=== PATIENT | female | born 1940 | race Caucasian/White ===

== ENCOUNTER → 2019-02-27 | Outpatient (CLI) | payer MEDICARE ==
[~2019-02-27] MED LIST: ALEN70TA5 PO; ASPI-586 PO; BIOT1TAB PO; CALC-6 PO; LISI-552 PO; MAGN400T6 PO; NABU500T PO; OMEP20CA12 PO; PRAV40TA2 PO; TRAM-42 PO
[2019-02-27 09:55] LABS: BASOPHILS % (AUTO) 0 % (0-10); EOSINOPHILS # (AUTO) 0.1 10^3/uL (0.0-0.3); EOSINOPHILS % (AUTO) 2 % (0-10); HEMATOCRIT 38 % (35-52); HEMOGLOBIN 11.6 G/DL (11.5-16.0); LYMPHOCYTES # (AUTO) 1.1 X 10^3 (1.0-4.0); LYMPHOCYTES % (AUTO) 21 % (12-44); MEAN CORPUSCULAR HEMOGLOBIN 29 PG (25-34); MEAN CORPUSCULAR HGB CONC 31 G/DL (32-36); MEAN CORPUSCULAR VOLUME 96 FL (80-99); MEAN PLATELET VOLUME 8.7 FL (7.4-10.4); MONOCYTES # (AUTO) 0.3 X 10^3 (0.0-1.0); MONOCYTES % (AUTO) 6 % (0-12); NEUTROPHILS # (AUTO) 3.8 X 10^3 (1.8-7.8); NEUTROPHILS % (AUTO) 71 % (42-75); PLATELET COUNT 250 10^3/uL (130-400); WHITE BLOOD COUNT 5.3 10^3/uL (4.3-11.0)
[2019-02-27 10:17] LABS: BILIRUBIN,TOTAL 0.4 MG/DL (0.1-1.0); CALCIUM 9.6 MG/DL (8.5-10.1); CREATININE SERUM 1.3 MG/DL (0.60-1.30); POTASSIUM 4.2 MMOL/L (3.6-5.0); TOTAL PROTEIN 7.5 GM/DL (6.4-8.2)
[2019-02-27 10:57] LABS: BAND NEUTROPHILS 0 %; BASOPHILS % (MANUAL) 0 %; EOSINOPHILS % (MANUAL) 2 %; LYMPHOCYTES % (MANUAL) 25 %; MONOCYTES % (MANUAL) 6 %; NEUTROPHILS % (MANUAL) 67 %; RBC MORPH NORMAL
== END ==
LOC: LAB 09:33
PROVIDERS: ATTEND Internal Medicine
DX: R50.9 Fever, unspecified (principal); M79.10 Myalgia, unspecified site
CPT/HCPCS: 36415; 80053; 85007; 85027

== ENCOUNTER 2021-04-01 14:10 | Emergency (ER) | payer MEDICARE ==
[~2021-04-01] VITALS: Ht 167 cm; Wt 70.0 kg
[~2021-04-01 14:10] MED LIST changes: -ALEN70TA5 PO; +ALEN70TA80 PO; -CALC-6 PO; +CALC1TAB84 PO; -LISI-552 PO; +LISI20TA26 PO; -MAGN400T6 PO; +MAGN400T8 PO; -NABU500T PO; +NABU500T8 PO; -OMEP20CA12 PO; +OMEP20CA18 PO
[2021-04-01] MEDS ORDERED: fentaNYL INJ 100 MCG/2 ML AMP IVP ONE (15:00)
--- NOTE | 2021-04-01 15:10 | ED Trauma-Multisystem ---
General Chief Complaint: Trauma-Non Activation Stated Complaint: STERNUM PAIN FELL Nursing Triage Note: ARRIVED VIA AMB TO ROOM 05 ET HOLDING CHEST. STATES SHE FELL EARLIER TODAY CAUSING SEVERE PAIN IN HER STERNUM AREA. PT STATES SHE DID NOT HIT HER HEAD. Source of Information: Patient Exam Limitations: No Limitations History of Present Illness Date Seen by Provider: Apr 01, 2021 Time Seen by Provider: 15:07 Initial Comments To ER with reports of sternal pain. She arrives holding her chest with shallow breathing. She fell earlier today landing on her chest. Did not hit her face or head. No extremity pain. She landed directly on her chest. She was standing at the bar getting ready to go eat lunch with her when she fell. Occurred: Just Prior to Arrival Severity: Moderate Pain/Injury Location: Chest Method of Injury: Fall Loss of Consciousness: No Loss of Consciousness Associated Symptoms (Fall): No Abdominal Pain; Chest Pain Allergies and Home Medications Allergies Coded Allergies: quinine (Verified Allergy, Unknown, 11/25/15) Home Medications Alendronate Sodium 70 Mg Tablet, 70 MG PO DAILY, (Reported) Biotin 1 Mg Tablet, 1 MG PO DAILY, (Reported) Lisinopril 20 Mg Tablet, 20 MG PO DAILY, (Reported) Magnesium Oxide 400 Mg Tablet, 400 MG PO DAILY, (Reported) Nabumetone 500 Mg Tablet, 500 MG PO BID, (Reported) Omeprazole 20 Mg Capsule.dr, 20 MG PO DAILY, (Reported) Pravastatin Sodium 40 Mg Tablet, 40 MG PO DAILY, (Reported) Tramadol HCl 50 Mg Tablet, 50 MG PO Q4H Prescribed by: ERICA ARRIOLA on 11/25/15 1514 Tramadol HCl 50 Mg Tablet, 50 MG PO Q6H PRN for PAIN-MODERATE (5-7) Prescribed by: LENKA BAUMAN on 04/01/21 1658 Patient Home Medication List Home Medication List Reviewed: Yes Review of Systems Review of Systems Constitutional: see HPI Eyes: No Symptoms Reported Ears: No Symptoms Reported Nose: No Symptoms Reported Mouth: No Symptoms Reported Throat: No Symptoms to Report Respiratory: no symptoms reported Cardiovascular: See HPI, Chest Pain Genitourinary: no symptoms reported Past Oedjbbm-Xghvwn-Xqeagd Hx Seasonal Allergies Seasonal Allergies: Yes Past Medical History Appendectomy, Gallbladder, Orthopedic Hypertension Physical Exam Vital Signs Vital Signs - First Documented 04/01/21 14:45 Temp 36.4 Pulse 87 Resp 16 B/P (MAP) 141/92 (108) Pulse Ox 85 O2 Delivery Nasal Cannula O2 Flow Rate 2.00 Height, Weight, BMI Height: 5'6" Weight: 170lbs. oz. 77.203187xm; 25.00 BMI Method: General Appearance: No Apparent Distress, WD/WN, Thin, Other (Splinting the left anterior medial chest. She states that she has to breathe shallow because breathing deeply hurts too much. No pain in the abdomen. Oxygen saturation was 86% on room air due to her shallow breathing most likely as she does not have any pre-existing lung disease nor does she wear oxygen at home.) Neck: Full Range of Motion, Normal Inspection Respiratory: No Accessory Muscle Use, No Respiratory Distress Gastrointestinal: Normal Bowel Sounds, Non Tender, Soft Neurologic/Psychiatric: Alert, Oriented x3 Skin: Normal Color, Warm/Dry [place] Coma Score Best Eye Response ([place]): (4) Open Spontaneously Best Verbal Response ([place]): (5) Oriented Best Motor Response ([place]): (6) Obeys Commands [place] Total: 15 Progress/Results/Core Measures Results/Orders Lab Results Laboratory Tests Test 04/01/21 15:11 Range/Units White Blood Count 10.3 4.3-11.0 10^3/uL Red Blood Count 3.91 3.80-5.11 10^6/uL Hemoglobin 11.1 L 11.5-16.0 g/dL Hematocrit 37 35-52 % Mean Corpuscular Volume 94 80-99 fL Mean Corpuscular Hemoglobin 28 25-34 pg Mean Corpuscular Hemoglobin Concent 30 L 32-36 g/dL Red Cell Distribution Width 13.4 10.0-14.5 % Platelet Count 245 130-400 10^3/uL Mean Platelet Volume 9.1 9.0-12.2 fL Immature Granulocyte % (Auto) 1 % Neutrophils (%) (Auto) 87 H 42-75 % Lymphocytes (%) (Auto) 8 L 12-44 % Monocytes (%) (Auto) 4 0-12 % Eosinophils (%) (Auto) 0 0-10 % Basophils (%) (Auto) 0 0-10 % Neutrophils # (Auto) 8.9 H 1.8-7.8 10^3/uL Lymphocytes # (Auto) 0.8 L 1.0-4.0 10^3/uL Monocytes # (Auto) 0.4 0.0-1.0 10^3/uL Eosinophils # (Auto) 0.0 0.0-0.3 10^3/uL Basophils # (Auto) 0.0 0.0-0.1 10^3/uL Immature Granulocyte # (Auto) 0.1 0.0-0.1 10^3/uL Neutrophils % (Manual) 87 % Lymphocytes % (Manual) 8 % Monocytes % (Manual) 3 % Metamyelocytes % 1 % Myelocytes % 1 % Hypochromasia SLIGHT Sodium Level 139 135-145 MMOL/L Potassium Level 4.1 3.6-5.0 MMOL/L Chloride Level 102 98-107 MMOL/L Carbon Dioxide Level 25 21-32 MMOL/L Anion Gap 12 5-14 MMOL/L Blood Urea Nitrogen 19 H 7-18 MG/DL Creatinine 1.33 H 0.60-1.30 MG/DL Estimat Glomerular Filtration Rate 38 BUN/Creatinine Ratio 14 Glucose Level 120 H 70-105 MG/DL Calcium Level 10.1 8.5-10.1 MG/DL Corrected Calcium 10.1 8.5-10.1 MG/DL Total Bilirubin 0.5 0.1-1.0 MG/DL Aspartate Amino Transf (AST/SGOT) 22 5-34 U/L Alanine Aminotransferase (ALT/SGPT) 14 0-55 U/L Alkaline Phosphatase 42 40-136 U/L Troponin I < 0.028 <0.028 NG/ML Total Protein 7.7 6.4-8.2 GM/DL Albumin 4.0 3.2-4.5 GM/DL My Orders Orders - LENKA BAUMAN HISTOTECHNICIAN Cbc With Automated Diff (04/01/21 15:00) Ekg Tracing (04/01/21 15:00) Troponin I (04/01/21 15:00) Comprehensive Metabolic Panel (04/01/21 15:00) Chest 1 View, Ap/Pa Only (04/01/21 15:00) Ed Iv/Invasive Line Start (04/01/21 15:00) Fentanyl Inj (Sublimaze Injection) (04/01/21 15:00) Manual Differential (04/01/21 15:11) Ct Chest/Abdomen Wo (04/01/21 15:48) Incentive Spirometry Initial (04/01/21 16:52) Incentive Spirometry (Nursing) Q2H (04/01/21 16:52) Tramadol Tablet (Ultram Tablet) (04/01/21 17:00) Medications Given in ED Current Medications Medications Dose Ordered Sig/Fortunato Route Start Time Stop Time Status Last Admin Dose Admin Fentanyl Citrate 50 mcg ONCE ONCE IVP 04/01/21 15:00 04/01/21 15:02 DC 04/01/21 15:16 50 MCG Tramadol HCl 50 mg ONCE ONCE PO 04/01/21 17:00 04/01/21 17:01 DC 04/01/21 17:01 50 MG Vital Signs/I&O 04/01/21 04/01/21 04/01/21 14:45 14:45 17:13 Temp 36.4 Pulse 87 71 Resp 16 16 B/P (MAP) 141/92 (108) 147/77 Pulse Ox 85 85 96 O2 Delivery Nasal Cannula Room Air Room Air O2 Flow Rate 2.00 Blood Pressure Mean: 108 Diagnostic Imaging Diagonstic Imaging: Xray, CT Comments NAME: GUADALUPE ALICEA MED REC#: [id number] PT STATUS: REG ER : 1940 PHYSICIAN: LENKA BAUMAN HISTOTECHNICIAN ADMIT DATE: 04/01/21/ER Draft Date of Exam:04/01/21 CHEST 1 VIEW, AP/PA ONLY EXAMINATION: Chest 1 view. HISTORY: Chest pain. COMPARISON: None available. FINDINGS: Right hemidiaphragm is elevated. No pleural effusion or pneumothorax. No edema or pneumonia. Heart size is normal. There is left shoulder hemiarthroplasty. 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 IMPRESSION: Elevated right hemidiaphragm with clear lungs. Dictated on workstation # [id number] Dict: 04/01/21 1541 Trans: 04/01/21 1543 [facility] [id number] Interpreted by: ELIAS EDWARD MD Electronically signed by: Departure Communication (Admissions) [id number]-after her pain was controlled adequately such that she could take a deep breath her oxygen saturation yunier to 93% where it stayed even with the supplemental oxygen turned off. She will be given an Ultram here and instructed on incentive spirometer usage. She denies any radicular symptoms down the legs or any back pain. I discussed with her the L3 fracture and she is nontender to this location. Perhaps this is not acute as it would appear on CT. Either way she will be given a prescription for tramadol and to follow-up with Dr. Alfaro. I did offer admission but she states she has a disabled at home she would like to go home and be able to take care of. Impression Primary Impression: Status post fall Additional Impression: Sternal fracture Disposition: HOME, SELF-CARE Condition: Improved Departure-Patient Inst. Decision time for Depature: 15:40 Referrals: SUAD ALFARO MD (PCP/Family) Primary Care Physician Patient Instructions: Sternal Fracture Add. Discharge Instructions: 1. Use the incentive spirometer device to ensure that you are taking adequately deep breaths. Take the Ultram pain medication in addition to the Tylenol for pain control. Return to ER for weakness or shortness of breath or intolerable pain. Call Dr. Alfaro for follow-up as soon as he can see you. All discharge instructions reviewed with patient and/or family. Voiced understanding. Scripts Tramadol HCl (Ultram) 50 Mg Tablet 50 MG PO Q6H PRN for PAIN-MODERATE (5-7), #20 TAB Prov: LENKA BAUMAN APRN 04/01/21 Copy Copies To 1: SUAD ALFARO MD, PETER J APRN Apr 01, 2021 15:10
[2021-04-01 15:16] LABS: BASOPHILS % (AUTO) 0 % (0-10); EOSINOPHILS % (AUTO) 0 % (0-10); HEMATOCRIT 37 % (35-52); HEMOGLOBIN 11.1 g/dL (11.5-16.0); LYMPHOCYTES # (AUTO) 0.8 10^3/uL (1.0-4.0); LYMPHOCYTES % (AUTO) 8 % (12-44); MEAN CORPUSCULAR HEMOGLOBIN 28 pg (25-34); MEAN CORPUSCULAR HGB CONC 30 g/dL (32-36); MEAN CORPUSCULAR VOLUME 94 fL (80-99); MEAN PLATELET VOLUME 9.1 fL (9.0-12.2); MONOCYTES # (AUTO) 0.4 10^3/uL (0.0-1.0); MONOCYTES % (AUTO) 4 % (0-12); NEUTROPHILS # (AUTO) 8.9 10^3/uL (1.8-7.8); NEUTROPHILS % (AUTO) 87 % (42-75); PLATELET COUNT 245 10^3/uL (130-400); WHITE BLOOD COUNT 10.3 10^3/uL (4.3-11.0)
[2021-04-01 15:32] LABS: CHLORIDE 102 MMOL/L (98-107); POTASSIUM 4.1 MMOL/L (3.6-5.0); SODIUM 139 MMOL/L (135-145)
[2021-04-01 15:33] LABS: CALCIUM 10.1 MG/DL (8.5-10.1)
[2021-04-01 15:34] LABS: GLUCOSE 120 MG/DL (70-105); TOTAL PROTEIN 7.7 GM/DL (6.4-8.2)
[2021-04-01 15:35] LABS: CARBON DIOXIDE 25 MMOL/L (21-32)
[2021-04-01 15:36] LABS: BILIRUBIN,TOTAL 0.5 MG/DL (0.1-1.0)
[2021-04-01 15:38] LABS: ALKALINE PHOSPHATASE 42 U/L (40-136); CREATININE SERUM 1.33 MG/DL (0.60-1.30); GFR ESTIMATED 38
[2021-04-01 15:39] LABS: BUN/CREATININE RATIO 14
[2021-04-01 15:41] LABS: ALANINE AMINOTRANSFERASE 14 U/L (0-55)
--- NOTE | 2021-04-01 15:44 | Diagnostic Imaging Report ---
EXAMINATION: Chest 1 view. HISTORY: Chest pain. COMPARISON: None available. FINDINGS: Right hemidiaphragm is elevated. No pleural effusion or pneumothorax. No edema or pneumonia. Heart size is normal. There is left shoulder hemiarthroplasty. 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 IMPRESSION: Elevated right hemidiaphragm with clear lungs. Dictated by: Dictated on workstation # [id number]
[2021-04-01 16:41] LABS: HYPOCHROMASIA SLIGHT; LYMPHOCYTES % (MANUAL) 8 %; METAMYELOCYTES % 1 %; MONOCYTES % (MANUAL) 3 %; MYELOCYTES % 1 %; NEUTROPHILS % (MANUAL) 87 %
[2021-04-01] MEDS ORDERED: TRAM-42 PO (16:57)
[2021-04-01 17:13] VITALS: BP 147/77
--- NOTE | 2021-04-01 17:28 | Diagnostic Imaging Report ---
PROCEDURE: CT chest and abdomen without contrast. TECHNIQUE: Axial images were obtained from the thoracic inlet through the iliac crest without the administration of intravenous contrast. Auto Exposure Controls were utilized during the CT exam to meet ALARA standards for radiation dose reduction. INDICATION: Fall with chest pain. COMPARISON: CT chest performed 11/25/2015. FINDINGS: CT chest: Having developed since the previous CT is an area of buckling of the left paramedian sternal cortex sternum at its anterior and posterior cortices. No lucent fracture line, however, this is presumed on a posttraumatic basis given the history. No retrosternal hematoma. These findings are best seen on axial image 40 of 77. No acute rib fracture deformity identified. No lung contusion pneumothorax or hemopneumothorax. No periaortic or mediastinal hematoma. There is no abnormal pericardial fluid. There are aortic and coronary arterial atherosclerotic vascular calcifications without aneurysm. There is a T10 mid to anterior 3rd superior endplate compression fracture with about 50% stature loss. This is well-corticated, sclerotic, with no adjacent edema or hemorrhage. This is believed chronic although new from 2016. There are degenerative changes throughout the thoracic spine. An acute thoracic spinal injury is not identified. There is no lung mass. No thoracic adenopathy. There is elevation of the right diaphragm, stable and chronic. CT abdomen: There is no abdominal free fluid or free air. There is an acute appearing L3 superior endplate fracture with slight retropulsion of about 1 to 2 mm. This level has about 10-15% stature loss. There is no appreciable hyperdense epidural or paraspinal hematoma. This is below the field of view of the comparison study but again I think this is an acute fracture. The unopacified liver and spleen appear stable from prior and nonacute. There is no adrenal mass or hematoma. Chronic cyst formation associated with the right renal upper pole is stable. There is a left-sided renal parapelvic cyst, unchanged. The atherosclerotic aorta is nonaneurysmal. No free air. IMPRESSION: CHEST: 1. Buckle type fracture without lucent component. Left paramedian lower sternum without retrosternal hematoma. While no lucent fracture line can be seen, this is new from the comparison. Given the history of injury with sternal pain this is presumed acute. 2. No finding of pulmonary parenchymal or pleural injury and no acute rib fracture deformity. There is chronic elevation of the right diaphragm, stable from comparisons. Chronic appearing lower thoracic compression deformity noted. ABDOMEN: 1. An acute appearing L3 superior endplate fracture with slight retropulsion no involvement of the bony 3rd column. Renal parapelvic and cortical cysts, chronic. No abdominal free fluid or hemoperitoneum and no free air. Results discussed with [place] APRN at time of dictation. Dictated by: Dictated on workstation # [id number]
== END 2021-04-01 17:13 | disposition home or self-care (01) ==
LOC: EDUNIT# 14:10 → ER 14:11
DX: S22.20XA Unspecified fracture of sternum, initial encounter for closed fracture (principal); W19.XXXA Unspecified fall, initial encounter; Y92.511 Restaurant or cafe as the place of occurrence of the external cause
CPT/HCPCS: 36415; 71045; 71250; 74150; 80053; 84484; 85007; 85027; 93005

== ENCOUNTER → 2021-08-17 | Outpatient (CLI) | payer MEDICARE ==
[~2021-08-17] MED LIST changes: -MAGN400T8 PO; +MGX400T PO
--- NOTE | 2021-08-17 10:44 | Diagnostic Imaging Report ---
INDICATION: Lower thoracic and upper lumbar pain. EXAMINATION: Lumbar spine, 3 views. FINDINGS: There is diffuse osteoporosis. There is good alignment of the vertebral bodies. There is a compression fracture involving the L3 vertebral body with approximately 50% loss of body height. No evidence of posterior retropulsion. No other definite fractures are demonstrated. The SI joints are symmetrical. IMPRESSION: There is a compression fracture of L3 which is somewhat sclerotic and shows approximately 50% loss of body height. This may be chronic in nature. There has been considerable progression of loss of body height since the CT scan of 04/01/2021. Dictated by: Dictated on workstation # [id number]
--- NOTE | 2021-08-17 11:59 | Diagnostic Imaging Report ---
INDICATION: Back pain, history of fractures. COMPARISON: 04/01/2021. TECHNIQUE: Three radiographs of the thoracic spine dated 08/17/2021. FINDINGS: Significantly accentuated kyphosis of the thoracic spine. This is associated with accentuated lordosis of the cervical spine. No significant anterolisthesis or retrolisthesis. Anterior wedge deformities and vertebral body height loss are noted within the mid to lower thoracic spine. The majority of this vertebral body height loss appears similar to the prior exam. However, one vertebral body within the lower thoracic spine, possibly T9, demonstrates further vertebral body height loss when compared to the prior exam. No discrete fracture plane. Disc space height loss throughout the thoracic spine is again identified with multilevel anterior osteophyte formation. Left shoulder arthroplasty is partially visualized. Surgical clips are present within the right upper abdomen. Advanced vascular calcifications, including within the splenic artery. IMPRESSION: Worsening vertebral body height loss within a vertebral body within the lower thoracic spine, possibly T9. This may relate to an age-indeterminate compression deformity which is worsened since prior imaging from March 2021. If pain is referrable to this location, then further evaluation with CT or preferably MRI would be recommended. Additional chronic vertebral body height loss within the lower thoracic spine. Accentuation of the normal thoracic kyphosis with moderate multilevel degenerative changes present. Advanced vascular calcifications. Dictated by: Dictated on workstation # [id number]
== END ==
LOC: RAD 08:59
PROVIDERS: ATTEND Internal Medicine
DX: M48.56XA Collapsed vertebra, not elsewhere classified, lumbar region, initial encounter for fracture (principal); M47.816 Spondylosis without myelopathy or radiculopathy, lumbar region; M43.8X4 Other specified deforming dorsopathies, thoracic region; M40.294 Other kyphosis, thoracic region; I70.8 Atherosclerosis of other arteries
CPT/HCPCS: 72072; 72100

== ENCOUNTER 2021-09-10 14:12 | Emergency (ER) | payer MEDICARE ==
[~2021-09-10] VITALS: Ht 167 cm; Wt 70.0 kg
--- NOTE | 2021-09-10 14:44 | ED Fall/Injury ---
General Stated Complaint: FALL HEAD/LEFT SHOULDER INJURY Source: patient, family Exam Limitations: no limitations (CITLALLI HOLLINS MED STUDENT) History of Present Illness Date Seen by Provider: Sep 10, 2021 Time Seen by Provider: 14:25 Initial Comments This is a 80 YO female with hx of HTN and HLD presenting to the ED s/p fall just [employer]. Pt was walking out the door of her assisted living home when the wind caught a bag she was carrying and caused her to fall. Denies any prodromal symptoms, no loss of consciousness. Now complaining of pain on the left side of her head, left chest, and left shoulder. Has had left shoulder replaced in the past. Takes baby aspirin daily, but not on blood thinners. Occurred: just prior to arrival (CITLALLI HOLLINS STUDENT) Allergies and Home Medications Allergies Coded Allergies: quinine (Verified Allergy, Unknown, 11/25/15) Patient Home Medication List Home Medication List Reviewed: Yes (NIKKI SÁNCHEZ MD) Alendronate Sodium (Alendronate Sodium) 70 Mg Tablet, 70 MG PO DAILY, (Reported) Entered as Reported by: BERTO DELACRUZ on 11/25/15 132 Aspirin (Aspir 81) 81 Mg Tablet.dr, 81 MG PO, (Reported) Entered as Reported by: BERTO DELACRUZ on 11/25/15 132 Biotin (Biotin) 1 Mg Tablet, 1 MG PO DAILY, (Reported) Entered as Reported by: BERTO DELACRUZ on 11/25/15 132 Calcium Carbonate/Vitamin D3 (Calcium 600 + Vit D 200 Tablet) 1 Each Tablet, 1 EACH PO, (Reported) Entered as Reported by: BERTO DELACRUZ on 11/25/15 132 Lisinopril (Lisinopril) 20 Mg Tablet, 20 MG PO DAILY, (Reported) Entered as Reported by: BERTO DELACRUZ on 11/25/15 132 Magnesium Oxide (Magnesium Oxide) 400 Mg Tablet, 400 MG PO DAILY, (Reported) Entered as Reported by: BERTO DELACRUZ on 11/25/15 132 Nabumetone (Nabumetone) 500 Mg Tablet, 500 MG PO BID, (Reported) Entered as Reported by: BERTO DELACRUZ on 11/25/15 132 Omeprazole (Omeprazole) 20 Mg Capsule.dr, 20 MG PO DAILY, (Reported) Entered as Reported by: BERTO DELACRUZ on 11/25/15 1321 Pravastatin Sodium (Pravastatin Sodium) 40 Mg Tablet, 40 MG PO DAILY, (Reported) Entered as Reported by: BERTO DELACRUZ on 11/25/15 1321 Tramadol HCl (Ultram) 50 Mg Tablet, 50 MG PO Q4H Prescribed by: ERICA ARRIOLA on 11/25/15 1514 Tramadol HCl (Ultram) 50 Mg Tablet, 50 MG PO Q6H PRN for PAIN-MODERATE (5-7) Prescribed by: LENKA BAUMAN on 04/01/21 1658 Review of Systems Review of Systems Constitutional: No chills, No fever Eyes: Denies Blindness, Denies Blurred Vision Ears, Nose, Mouth, Throat: denies ear pain, denies ear discharge Respiratory: No cough, No dyspnea on exertion Cardiovascular: see HPI, chest pain; No palpitations Gastrointestinal: No abdominal pain, No vomiting Genitourinary: No discharge, No dysuria Musculoskeletal: see HPI Skin: no symptoms reported Psychiatric/Neurological: See HPI; Denies Numbness, Denies Paresthesia (CITLALLI HOLLINS MED STUDENT) All Other Systems Reviewed Negative Unless Noted: Yes (Negative excepted noted.) (CITLALLI HOLLINS STUDENT) Past Fwztqge-Eacdlv-Wocagt Hx Seasonal Allergies Seasonal Allergies: Yes (CITLALLI HOLLINS MED STUDENT) Past Medical History Appendectomy, Gallbladder, Orthopedic Hypertension (CITLALLI HOLLINS STUDENT) Physical Exam Vital Signs Vital Signs - First Documented 09/10/21 14:44 Pulse 86 Resp 14 B/P (MAP) 174/101 (125) Pulse Ox 98 O2 Delivery Room Air (NIKKI SÁNCHEZ MD) Vital Signs Capillary Refill : (CITLALLI HOLLINS MED STUDENT) Height, Weight, BMI Height: 5'6" Weight: 170lbs. oz. 77.379893tn; 25.00 BMI Method: General Appearance: WD/WN, no apparent distress HEENT: PERRL/EOMI, normal ENT inspection, pharynx normal; No scleral icterus (R), No scleral icterus (L); other (hematoma to left forehead not extending into the orbit; no raccoon eyes or thibodeaux's sign; no nasal drainage or tongue bite) Neck: non-tender, supple, normal inspection Cardiovascular: regular rate, rhythm, systolic murmur Respiratory: lungs clear, normal breath sounds, no respiratory distress, no accessory muscle use, other (left posterior chest tenderness just inferior to the scapula and left anterior rib) Gastrointestinal: non tender, soft; No distended, No guarding Extremities: pelvis stable; No pedal edema; other (left shoulder is nontender with no obvious deformity, but has decreased ROM secondary to pain; full and equal pediatrician/medical doctor strength bilaterally) Neurologic/Psychiatric: alert, normal mood/affect, oriented x 3 Skin: normal color, warm/dry, other (skin tear to left ring finger with no active bleeding) (CITLALLI HOLLINS MED STUDENT) Esteban Coma Score Best Eye Response: (4) Open Spontaneously Best Verbal Response: (5) Oriented Best Motor Response: (6) Obeys Commands (CITLALLI HOLLINS MED STUDENT) Progress/Results/Core Measures Results/Orders My Orders Orders - NIKKI SÁNCHEZ MD Ct Head/Cervical Spine Wo (09/10/21 14:54) Chest 1 View, Ap/Pa Only (09/10/21 14:54) Shoulder, Left, 3 Views (09/10/21 14:54) Acetaminophen Tablet (Tylenol Tablet) (09/10/21 15:00) Lorazepam Tablet (Ativan Tablet) (09/10/21 15:11) Dipht,Pertuss(Acell),Tet Adult (Boostrix (09/10/21 16:00) (NIKKI SÁNCHEZ MD) Medications Given in ED (NIKKI SÁNCHEZ MD) Vital Signs/I&O 09/10/21 09/10/21 09/10/21 14:44 14:49 16:42 Pulse 86 85 Resp 14 16 18 B/P (MAP) 174/101 (125) 174/101 (125) 152/96 Pulse Ox 98 98 95 O2 Delivery Room Air Room Air Room Air (NIKKI SÁNCHEZ MD) Progress Progress Note #1: Time: 15:23 Progress Note 80-year-old female presents to the emergency room after a mechanical trip and fall outside today. Patient states that she was walking and the wind caught a package she was carrying she fell onto her left side striking her head on the ground. She did not have a loss of consciousness. She was able to get back up and walk under her own power. She did suffer a skin tear to her left hand, some discomfort to her left shoulder and left chest wall. Large ecchymosis to the left side of her head. She has a mild headache. No nausea, no vision changes, no neck pain. She is not short of breath. She is not having any problems moving her arms and legs. No back pain. No abdominal pain. She is only on a baby aspirin daily. She is given Tylenol here in the emergency department as well as 1/2 mg of p.o. Ativan because she is very anxious. CT scan of the head and cervical spine are ordered as well as chest x-ray and left shoulder x-ray. She is status post left shoulder replacement. Vital signs are stable. Progress Note #2: Time: 16:[address] head and cervical spine negative for any acute intracranial pathology or cervical spine pathology. Patient is noted to have a nondisplaced distal left clavicular fracture. Chest x-ray is clear. Vital signs are stable. Patient will be given a shoulder sling as well as an ice pack. She prefers not to take any narcotic pain medications as they make her sick. I have instructed her on Tylenol, extra strength every 6 hours for pain. She is to follow-up with an orthopedic surgeon of her choosing. I have given her contact information for Dr. Garcia. Recommended also following up with Dr. Alfaro her primary care. Return precautions given. All questions sought and answered. (NIKKI SÁNCHEZ MD) Diagnostic Imaging Diagonstic Imaging: Xray Plain Films/CT/US/NM/MRI: chest Comments [facility], [place] NAME: GUADALUPE ALICEA [facility] REC#: [id number] PT STATUS: REG ER : 1940 PHYSICIAN: NIKKI SÁNCHEZ MD ADMIT DATE: 09/10/21/ER Draft Date of Exam:09/10/21 CHEST 1 VIEW, AP/PA ONLY INDICATION: Fall, pain. EXAMINATION: Chest, 09/10/2021. COMPARISON: 04/01/2021. FINDINGS: There is postoperative change in both shoulders. There is a fracture of the distal left clavicle without significant dislocation. Minimal superior subluxation of the distal clavicular fracture fragment is noted. There is elevation of the right hemidiaphragm. There is mild bibasilar dependent atelectasis. Heart and pulmonary vasculature are normal. No pneumothorax. No effusions. Slightly prominent loops of bowel are seen throughout the abdomen with clips in the right upper quadrant. IMPRESSION: 1. No acute cardiopulmonary process. 2. Left clavicular fracture. 3. Slightly distended air-filled visualized loops of bowel. Dictated on workstation # [id number] Dict: 09/10/21 1553 Trans: 09/10/21 1558 [id number] Interpreted by: KELSY MARIE MD Electronically signed by: [facility]. [place], [place] NAME: GUADALUPE ALICEA [facility] REC#: [id number] PT STATUS: REG ER : 1940 PHYSICIAN: NIKKI SÁNCHEZ MD ADMIT DATE: 09/10/21/ER Draft Date of Exam:09/10/21 SHOULDER, LEFT, 3 VIEWS INDICATION: Fall, with left shoulder pain. EXAMINATION: Left shoulder, 09/10/2021. FINDINGS: Three views of the shoulder. There is a left shoulder prosthesis which appears intact with no evidence of loosening or fracture. There is superior subluxation of the humeral head, possibly due to a full-thickness rotator cuff tear. Remodeling of the of glenoid consistent with chronic degenerative disease. There is a questionable fracture through the distal aspect of the clavicle. There are no dislocations. IMPRESSION: 1. Fracture of the distal clavicle with otherwise chronic changes as above. Dictated on workstation # [id number] Dict: 09/10/21 1552 Trans: 09/10/21 1555 [id number] Interpreted by: KELSY MARIE MD Electronically signed by: PT STATUS: REG ER : 1940 PHYSICIAN: NIKKI SÁNCHEZ MD ADMIT DATE: 09/10/21/ER Signed Date of Exam:09/10/21 CT HEAD/CERVICAL SPINE WO PROCEDURE: CT head and CT cervical spine without contrast. TECHNIQUE: Multiple contiguous axial images were obtained through the brain and cervical spine without the use of intravenous contrast. Sagittal and coronal reformations through the cervical spine were then performed. Auto Exposure Controls were utilized during the CT exam to meet ALARA standards for radiation dose reduction. INDICATION: Fall, head and neck injury, headache. COMPARISON: None. CT HEAD: There is advanced age-related cerebral volume loss and chronic microvascular changes. There is no focus of acute ischemia or hemorrhage. There is a left scalp hematoma. No underlying skull fracture is seen. There is a midline mass in the region of 3rd ventricle measuring 11 mm likely community representative of a benign colloid cyst. There is no ventriculomegaly. The paranasal sinuses and mastoids are unremarkable. IMPRESSION: 1. No acute intracranial abnormalities. 2. 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 CT CERVICAL SPINE: Alignment is normal. There is no subluxation or fracture. Degenerative changes are seen throughout. Atherosclerotic disease is seen involving the carotid arteries. The upper lung zones are clear. Soft tissues are otherwise unremarkable. Central canal is patent. IMPRESSION: 1. No traumatic malalignment or fracture. 2. Diffuse degenerative changes. 3. Carotid artery atherosclerotic disease. Dictated by: Dictated on workstation # [id number] Dict: 09/10/21 1548 Trans: 09/10/21 1557 [facility] [id number] Interpreted by: KIMBERLY MURPHY Electronically signed by: KIMBERLY MURPHY 09/10/21 7417 (NIKKI SÁNCHEZ MD) Departure Impression Primary Impression: Minor head injury without loss of consciousness Qualified Codes: S09.90XA - Unspecified injury of head, initial encounter Additional Impressions: Closed left clavicular fracture Qualified Codes: S42.035A - Nondisplaced fracture of lateral end of left clavicle, initial encounter for closed fracture Contusion of chest wall Qualified Codes: S20.212A - Contusion of left front wall of thorax, initial encounter Abrasion of left hand Qualified Codes: S60.512A - Abrasion of left hand, initial encounter Disposition: 01 HOME, SELF-CARE Condition: Stable Departure-Patient Inst. Decision time for Depature: 15:24 (NIKKI SÁNCHEZ MD) Referrals: SUAD ALFARO MD (PCP/Family) Primary Care Physician DEBBIE GARCIA MD Patient Instructions: Clavicle Fracture, Minor Head Injury (DC) Add. Discharge Instructions: You can apply an ice pack to the left side of your head (and collar bone area) to help reduce swelling. That bruising will be there for quite a while. Do not be alarmed if you see bruising down the left side of your face after a couple of days. Wear the shoulder immobilizer as needed for comfort. Please follow up with Orthopedics - I have given you the name and contact information of our orthopedist public transportation inspector today - Dr Garcia. Extra strength Tylenol, 2 tablets every 6 hours as needed for headache/shoulder pain. If you have severe headache especially with nausea, confusion, balance or coordination issues you need to come back to the emergency room for reevaluation. Please follow-up with your primary care provider as well. Verification and Attestation of Medical Student E/M Service A medical student performed and documented this service in my presence. I reviewed and verified all information documented by the medical student and made modifications to such information, when appropriate. I personally performed the physical exam and medical decision making. Nikki Sánchez, Sep 10, 2021,15:24 (NIKKI SÁNCHEZ MD) CITLALLI HOLLINS MED STUDENT Sep 10, 2021 14:44 NIKKI SÁNCHEZ MD Sep 10, 2021 15:25
[2021-09-10] MEDS ORDERED: ACETAMINOPHEN 500 MG TAB (TYLENOL) PO ONE (15:00)
[2021-09-10] MEDS ORDERED: LORazepam 0.5 MG (ATIVAN) TABLET PO STA (15:11)
--- NOTE | 2021-09-10 15:56 | Diagnostic Imaging Report ---
INDICATION: Fall, with left shoulder pain. EXAMINATION: Left shoulder, 09/10/2021. FINDINGS: Three views of the shoulder. There is a left shoulder prosthesis which appears intact with no evidence of loosening or fracture. There is superior subluxation of the humeral head, possibly due to a full-thickness rotator cuff tear. Remodeling of the of glenoid consistent with chronic degenerative disease. There is a questionable fracture through the distal aspect of the clavicle. There are no dislocations. IMPRESSION: 1. Fracture of the distal clavicle with otherwise chronic changes as above. Dictated by: Dictated on workstation # [id number]
--- NOTE | 2021-09-10 15:57 | Diagnostic Imaging Report ---
PROCEDURE: CT head and CT cervical spine without contrast. TECHNIQUE: Multiple contiguous axial images were obtained through the brain and cervical spine without the use of intravenous contrast. Sagittal and coronal reformations through the cervical spine were then performed. Auto Exposure Controls were utilized during the CT exam to meet ALARA standards for radiation dose reduction. INDICATION: Fall, head and neck injury, headache. COMPARISON: None. CT HEAD: There is advanced age-related cerebral volume loss and chronic microvascular changes. There is no focus of acute ischemia or hemorrhage. There is a left scalp hematoma. No underlying skull fracture is seen. There is a midline mass in the region of 3rd ventricle measuring 11 mm likely inside sales account representative of a benign colloid cyst. There is no ventriculomegaly. The paranasal sinuses and mastoids are unremarkable. IMPRESSION: 1. No acute intracranial abnormalities. 2. 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 CT CERVICAL SPINE: Alignment is normal. There is no subluxation or fracture. Degenerative changes are seen throughout. Atherosclerotic disease is seen involving the carotid arteries. The upper lung zones are clear. Soft tissues are otherwise unremarkable. Central canal is patent. IMPRESSION: 1. No traumatic malalignment or fracture. 2. Diffuse degenerative changes. 3. Carotid artery atherosclerotic disease. Dictated by: Dictated on workstation # [id number]
--- NOTE | 2021-09-10 15:58 | Diagnostic Imaging Report ---
INDICATION: Fall, pain. EXAMINATION: Chest, 09/10/2021. COMPARISON: 04/01/2021. FINDINGS: There is postoperative change in both shoulders. There is a fracture of the distal left clavicle without significant dislocation. Minimal superior subluxation of the distal clavicular fracture fragment is noted. There is elevation of the right hemidiaphragm. There is mild bibasilar dependent atelectasis. Heart and pulmonary vasculature are normal. No pneumothorax. No effusions. Slightly prominent loops of bowel are seen throughout the abdomen with clips in the right upper quadrant. IMPRESSION: 1. No acute cardiopulmonary process. 2. Left clavicular fracture. 3. Slightly distended air-filled visualized loops of bowel. Dictated by: Dictated on workstation # [id number]
[2021-09-10] MEDS ORDERED: TETANUS,DIPTH,PERTUSS P/F (BOOSTRIX) 0.5 ML VIAL IM ONE (16:00)
[2021-09-10 16:42] VITALS: BP 152/96
== END 2021-09-10 16:43 | disposition home or self-care (01) ==
LOC: EDUNIT# 14:12 → ER 14:14
DX: S42.032A Displaced fracture of lateral end of left clavicle, initial encounter for closed fracture (principal); S61.215A Laceration without foreign body of left ring finger without damage to nail, initial encounter; S20.212A Contusion of left front wall of thorax, initial encounter; S00.83XA Contusion of other part of head, initial encounter; S09.90XA Unspecified injury of head, initial encounter; I10 Essential (primary) hypertension; Z23 Encounter for immunization; Z79.82 Long term (current) use of aspirin; Z79.899 Other long term (current) drug therapy; W18.30XA Fall on same level, unspecified, initial encounter
CPT/HCPCS: 70450; 71045; 72125; 73030; 90715

== ENCOUNTER → 2021-11-01 | Outpatient (CLI) | payer MEDICARE ==
[2021-11-01 12:55] LABS: BASOPHILS % (AUTO) 1 % (0-10); EOSINOPHILS # (AUTO) 0.1 10^3/uL (0.0-0.3); EOSINOPHILS % (AUTO) 1 % (0-10); HEMATOCRIT 36 % (35-52); LYMPHOCYTES # (AUTO) 1.4 10^3/uL (1.0-4.0); LYMPHOCYTES % (AUTO) 27 % (12-44); MEAN CORPUSCULAR HEMOGLOBIN 29 pg (25-34); MEAN CORPUSCULAR HGB CONC 31 g/dL (32-36); MEAN CORPUSCULAR VOLUME 97 fL (80-99); MONOCYTES # (AUTO) 0.3 10^3/uL (0.0-1.0); MONOCYTES % (AUTO) 6 % (0-12); NEUTROPHILS # (AUTO) 3.5 10^3/uL (1.8-7.8); NEUTROPHILS % (AUTO) 66 % (42-75); PLATELET COUNT 232 10^3/uL (130-400); WHITE BLOOD COUNT 5.3 10^3/uL (4.3-11.0)
[2021-11-01 13:15] LABS: ALBUMIN 3.7 GM/DL (3.2-4.5); BILIRUBIN,TOTAL 0.6 MG/DL (0.1-1.0); CALCIUM 9.1 MG/DL (8.5-10.1); CREATININE SERUM 1.22 MG/DL (0.60-1.30); POTASSIUM 3.9 MMOL/L (3.6-5.0); TOTAL PROTEIN 7.1 GM/DL (6.4-8.2)
== END ==
LOC: CARD 12:30
PROVIDERS: ATTEND Internal Medicine
DX: I25.2 Old myocardial infarction (principal); I50.9 Heart failure, unspecified; R00.0 Tachycardia, unspecified
CPT/HCPCS: 36415; 80053; 83880; 84443; 85025; 85379

== ENCOUNTER → 2021-11-03 | Outpatient (CLI) | payer MEDICARE ==
[~2021-11-03] MED LIST changes: +ACET325T38 PO; +CARV3.122 PO; +CHOL-34 PO; +FURO40TA4 PO; +LISI10TA25 PO; +POTA99TA26 PO
--- NOTE | 2021-11-03 15:46 | Diagnostic Imaging Report ---
PROCEDURE: US Venous Lower Ext Chau. TECHNIQUE: Multiple real-time grayscale images were obtained over the lower extremities in various projections, bilaterally. Additional duplex Doppler and color Doppler images were also obtained. INDICATION: Lower extremity swelling and pain. COMPARISON: None FINDINGS: Visualized deep and superficial venous system is patent. There is no DVT. IMPRESSION: Negative lower extremity venous Doppler. Dictated by: Dictated on workstation # [id number]
== END ==
LOC: CARD 13:00
PROVIDERS: ATTEND Internal Medicine
DX: I50.9 Heart failure, unspecified (principal); M79.662 Pain in left lower leg; M79.661 Pain in right lower leg
CPT/HCPCS: 93306; 93970

== ENCOUNTER 2021-11-17 10:00 | Day surgery (SDC) | payer MEDICARE ==
[~2021-11-17] VITALS: Ht 170.2 cm; Wt 61.1 kg
[2021-11-17] VITALS (14 sets, daily range): BP systolic 115–155; BP diastolic 74–95
[2021-11-17 08:59] LABS: HEMATOCRIT 39 % (35-52); HEMOGLOBIN 11.6 g/dL (11.5-16.0); MEAN CORPUSCULAR HEMOGLOBIN 29 pg (25-34); MEAN CORPUSCULAR HGB CONC 30 g/dL (32-36); MEAN CORPUSCULAR VOLUME 96 fL (80-99); MEAN PLATELET VOLUME 10.4 fL (9.0-12.2); PLATELET COUNT 208 10^3/uL (130-400); WHITE BLOOD COUNT 5.3 10^3/uL (4.3-11.0)
[2021-11-17] MEDS: NS IV 1000 ML 1,000 ML IV SCH ×2 (09:11→09:33)
[2021-11-17 09:14] LABS: INR 1.2 (0.8-1.4); PROTHROMBIN TIME PATIENT 15.1 SEC (12.2-14.7)
[2021-11-17 09:21] LABS: BILIRUBIN,TOTAL 0.7 MG/DL (0.1-1.0); CALCIUM 9.7 MG/DL (8.5-10.1); CREATININE SERUM 1.74 MG/DL (0.60-1.30); POTASSIUM 4.1 MMOL/L (3.6-5.0); TOTAL PROTEIN 7.6 GM/DL (6.4-8.2)
--- NOTE | 2021-11-17 09:49 | Conscious Sedation/ASA ---
Conscious Sedation Pre-Proced Time 09:49 ASA Score 3 For ASA 3 and 4: Consider anesthesia and medical clearance. Also, for patients with a history of failed moderate sedation consider anesthesia. Airway Lungs Heart ASA score ASA 1: a normal healthy patient ASA 2: a patient with a mild systemic disease (mid diabetes, controlled hypertension, obesity X ASA 3: a patient with a severe systemic disease that limits activity (angina, COPD, prior Myocardial infarction) ASA 4: a patient with an incapacitating disease that is a constant threat to life (CHF, renal failure) ASA 5: a moribund patient not expected to survive 24 hrs. (ruptured aneurysm) ASA 6: a declared brain- patient whose organs are being harvested. For emergent operations, add the letter E after the classification Mallampati Classification Grade 3 Sedation Plan Analgesia, Amnesia, Plan communicated to team members, Discussed options with patient/fam, Discussed risks with patient/fam The patient is an appropriate candidate to undergo the planned procedure, sedation, and anesthesia. The patient immediately re-assessed prior to indication. CARLIE THOMAS MD Nov 17, 2021 09:49
--- NOTE | 2021-11-17 09:58 | Diagnostic Imaging Report ---
INDICATION: Congestive heart failure. TECHNIQUE: An AP view of the chest was obtained. COMPARISON: 09/10/2021. FINDINGS: There is continued elevation of the right hemidiaphragm. The overall heart size is within normal limits. The pulmonary vascularity is at the upper limits of normal. There is no evidence of pneumothorax or consolidation. No definite pleural fluid is seen. Surgical findings are seen in both shoulder girdles as well as in the region of the gallbladder fossa. IMPRESSION: Development of pulmonary venous congestion without overt edema. There is continued elevation of the right hemidiaphragm. Dictated by: Dictated on workstation # [id number]
[~2021-11-17 10:00] MED LIST changes: +HEParin (CATH LAB) 2,000 ML IV ONE; +LIDOCAINE 1% INJ 50 ML (XYLOCAINE) VIAL ONE; +MIDAZOLAM 5 MG/5 ML (VERSED) VIAL ONE; +NS IV 1000 ML 1,000 ML ONE; +fentaNYL INJ 100 MCG/2 ML AMP ONE
[2021-11-17] MEDS ORDERED: diphenhydrAMINE 50 MG/ML INJ (BENADRYL) ONE (10:01)
[2021-11-17] MEDS ORDERED: methylPREDNISolone 125 MG (Solu-MEDROL) VIAL ONE (10:02)
[2021-11-17] MEDS ORDERED: HEParin 1000 UNIT/ML (10ML VIAL) FOR BOLUS ONE (11:07)
[2021-11-17] MEDS ORDERED: ACETAMINOPHEN 325 MG TABLET PO PRN (11:30)
[2021-11-17] MEDS ORDERED: NS IV 1000 ML 1,000 ML IV SCH (11:30)
[2021-11-17] MEDS ORDERED: ENOXAPARIN 40 MG/0.4 ML (LOVENOX) SYR SQ SCH (11:30)
[2021-11-17] MEDS ORDERED: PATIENT MAY USE OWN MEDS, ALL PO SCH (11:30)
--- NOTE | 2021-11-17 11:33 | Cardiac Cath Report ---
Cardiac Cath Report Physician (s)/Maintenance Scheduler (s) Physician CARLIE THOMAS MD Pre-Procedure Diagnosis Pre-Procedure Diagnosis: Congestive heart failure Post-Procedure Note Procedure Start Date: Nov 17, 2021 Name of Procedure: Right and left heart catheterization Findings/Procedure Note 81 years old lady with history of congestive heart failure, ejection fraction 20%, scheduled for right and left heart catheterization. After explaining the procedure to the patient, all pros and cons were explained, all questions were answered, patient was placed on the cardiac catheterization laboratory, conscious sedation achieved, local anesthesia applied, 6 Haitian sheath was placed in the right femoral artery, 7 Haitian sheath was placed in the right femoral vein. Mozelle junie catheter advanced to the right atrium, right ventricle, main pulmonary artery, wedge position. Pressure was measured. Oxygen Saturation measured. Cardiac output was calculated using thermodilution and jeni equation. At the end of the procedure sheath was removed. Combination of right and left Issa catheter were used to access the right and left coronary system, pigtail catheter advanced to the left ventricular cavity, pressure was measured, no left ventriculogram was done. At the end of the procedure arterial sheath was removed with Mynx deployed and venous sheath was removed with manual pressure. Hemodynamics RA 15 RV 47/13, end-diastolic pressure of 13 PA 44/28 mean of 35 PCWP 32 LV 144/26, end-diastolic pressure of 26 AO 132/74 mean of 99 O2 Sat MRA 47.2 LRA 56.1 HRA 55.4 RV 54.7 PA 54.1 PCWP not measured Shunt no shunt was detected FA 89.4 Thermodilution cardiac output 2.90, cardiac index 1.7 JENI cardiac output 2.86, cardiac index 1.67 Anatomy: Left main coronary artery is free of obstructive disease with mild ectasia LAD, heavily calcified artery with subtotal occlusion proximally, severe stenosis at the midportion at the origin of a small diagonal artery. Moderate disease distally Left circumflex artery has diffuse ectasia with mild to moderate disease nonobstructive disease Right coronary artery is tortuous artery, calcified artery with mild to moderate disease nonobstructive disease Left ventriculogram was not done, pressure was measured Conclusion 1. Severe calcified LAD stenosis with subtotal occlusion, moderate to severe proximal LAD and mid LAD involving ostium of a small diagonal artery, moderate disease distally 2. Diffuse ectasia in the left circumflex artery with mild to moderate disease nonobstructive disease 3. Heavily calcified and tortuous right coronary artery with mild to moderate disease Discussion and recommendation: Patient will require high risk intervention possible Rotablator to the LAD then stenting of the LAD. Consideration for bypass surgery. Hospital course: Patient was admitted initially with planning for Rotablator to the LAD on the next day, it is considered high risk for seizure, discussed the management plan with the patient and the family, patient and family indicated and requested to be transferred to a tertiary care center. I contacted Dr. Vinson who accepted the patient and patient will be transferred for possible procedure tomorrow. Final diagnoses Coronary artery disease Congestive heart failure, chronic compensated left ventricular systolic dysfunction, ischemic cardiomyopathy Hypertension Hyperlipidemia Anesthesia Type: Conscious Sedation Estimated blood loss (mL): 30 ml Contrast Amount: 24 ml Total Radiation Dose: 447 mGy Post-Procedure Diagnosis Post-operative diagnosis: Congestive heart failure, chronic compensated left ventricular systolic dysfunction, ischemic cardiomyopathy. Coronary artery disease Hypertension Hyperlipidemia CARLIE THOMAS MD Nov 17, 2021 11:33
[2021-11-17] MEDS ORDERED: ENOXAPARIN 30 MG/0.3 ML (LOVENOX) SYR SC SCH (12:30)
[2021-11-17] MEDS ORDERED: MAGNESIUM OXIDE (MAG-OX)400 MG TAB PO SCH (21:00)
[2021-11-17] MEDS ORDERED: NON-FORMULARY MEDICATION 1 EA EA (Pravastatin Sodium 40 MG) PO SCH (21:00)
[2021-11-17] MEDS ORDERED: lisINopril 10 MG (PRINIVIL) TABLET PO SCH (21:00)
[2021-11-17] MEDS ORDERED: SIMvastatin 20 MG (ZOCOR) TAB PO SCH (21:00)
[2021-11-18] MEDS ORDERED: ASPIRIN E.C. 81 MG (ECOTRIN) TAB PO SCH (09:00)
[2021-11-18] MEDS ORDERED: VITAMIN D3 25 MCG (1,000 UNITS) TABLET PO SCH (09:00)
[2021-11-18] MEDS ORDERED: NON-FORMULARY MEDICATION 1 EA EA (Potassium Gluconate (Potassium) 99 MG) PO SCH (09:00)
[2021-11-18] MEDS ORDERED: FUROSEMIDE 40 MG (LASIX) TAB PO SCH (09:00)
[2021-11-18] MEDS ORDERED: OMEPRAZOLE 20 MG (PriLOSEC) CAP NON-FORMULARY PO SCH (09:00)
[2021-11-18] MEDS ORDERED: PANTOPRAZOLE 20 MG TABLET (PROTONIX) PO SCH (09:00)
== END 2021-11-17 15:50 | disposition short-term general hospital (02) ==
LOC: CATH 10:00 → CSD 11:59 → CATH 15:50
PROVIDERS: ATTEND Internal Medicine Cardiovascular Disease
DX: I11.0 Hypertensive heart disease with heart failure (principal); I25.10 Atherosclerotic heart disease of native coronary artery without angina pectoris; I50.23 Acute on chronic systolic (congestive) heart failure; I25.5 Ischemic cardiomyopathy; E78.5 Hyperlipidemia, unspecified; I65.23 Occlusion and stenosis of bilateral carotid arteries; Z79.899 Other long term (current) drug therapy; Z87.891 Personal history of nicotine dependence
CPT/HCPCS: 71045; 80053; 80061; 85027; 85610; 85730; 87081; 93460; C1760; C1769; C1894 ×2; 36415

== ENCOUNTER 2022-01-12 10:19 | Outpatient (RCR) | payer MEDICARE ==
[~2022-01-12 10:19] MED LIST changes: -HEParin (CATH LAB) 2,000 ML IV ONE; -LIDOCAINE 1% INJ 50 ML (XYLOCAINE) VIAL ONE; -MIDAZOLAM 5 MG/5 ML (VERSED) VIAL ONE; -NS IV 1000 ML 1,000 ML ONE; -fentaNYL INJ 100 MCG/2 ML AMP ONE
== END 2022-01-15 | disposition home or self-care (01) ==
LOC: CR 10:19
PROVIDERS: ATTEND Internal Medicine Cardiovascular Disease
DX: Z29.8 Encounter for other specified prophylactic measures (principal); Z95.5 Presence of coronary angioplasty implant and graft
CPT/HCPCS: 93798

== ENCOUNTER 2022-02-09 10:15 | Outpatient (RCR) | payer MEDICARE | END 2022-02-15 | disposition home or self-care (01) | LOC: CR 10:15 | PROVIDERS: ATTEND Internal Medicine Cardiovascular Disease | DX: Z29.8 Encounter for other specified prophylactic measures (principal); Z95.5 Presence of coronary angioplasty implant and graft | CPT/HCPCS: 93798 ==

== ENCOUNTER → 2022-03-07 | Outpatient (CLI) | payer MEDICARE | LOC: CARD 10:30 | PROVIDERS: ATTEND Physician Assistant | DX: I08.3 Combined rheumatic disorders of mitral, aortic and tricuspid valves (principal); I11.9 Hypertensive heart disease without heart failure; I25.10 Atherosclerotic heart disease of native coronary artery without angina pectoris | CPT/HCPCS: 93306 ==

== ENCOUNTER 2022-03-16 14:48 | Outpatient (RCR) | payer MEDICARE | END 2022-03-17 | disposition home or self-care (01) | LOC: CR 14:48 | PROVIDERS: ATTEND Internal Medicine Cardiovascular Disease | DX: Z29.8 Encounter for other specified prophylactic measures (principal); Z95.5 Presence of coronary angioplasty implant and graft | CPT/HCPCS: 93798 ==

== ENCOUNTER 2022-04-13 10:05 | Outpatient (RCR) | payer MEDICARE | END 2022-04-17 | disposition home or self-care (01) | LOC: CR 10:05 | PROVIDERS: ATTEND Internal Medicine Cardiovascular Disease | DX: Z29.8 Encounter for other specified prophylactic measures (principal); Z95.5 Presence of coronary angioplasty implant and graft | CPT/HCPCS: 93798 ==

== ENCOUNTER 2022-12-04 10:42 | Emergency (ER) | payer MEDICARE ==
[~2022-12-04] VITALS: Ht 165.1 cm; Wt 59.4 kg
[2022-12-04 10:59] LABS: BASOPHILS % (AUTO) 0 % (0-10); EOSINOPHILS # (AUTO) 0.1 10^3/uL (0.0-0.3); EOSINOPHILS % (AUTO) 2 % (0-10); HEMATOCRIT 25 % (35-52); LYMPHOCYTES # (AUTO) 1.1 10^3/uL (1.0-4.0); LYMPHOCYTES % (AUTO) 19 % (12-44); MEAN CORPUSCULAR HEMOGLOBIN 21 pg (25-34); MEAN CORPUSCULAR HGB CONC 27 g/dL (32-36); MEAN CORPUSCULAR VOLUME 77 fL (80-99); MEAN PLATELET VOLUME 9.5 fL (9.0-12.2); MONOCYTES # (AUTO) 0.5 10^3/uL (0.0-1.0); MONOCYTES % (AUTO) 8 % (0-12); NEUTROPHILS # (AUTO) 4.2 10^3/uL (1.8-7.8); NEUTROPHILS % (AUTO) 71 % (42-75); PLATELET COUNT 273 10^3/uL (130-400); WHITE BLOOD COUNT 5.9 10^3/uL (4.3-11.0)
[2022-12-04] MEDS ORDERED: fentaNYL INJ 100 MCG/2 ML AMP IVP ONE ×3 (11:00→12:30)
[2022-12-04] MEDS ORDERED: LIDOCAINE UROJET 2% GEL 10 ML PKG TOP ONE (11:00)
[2022-12-04] MEDS ORDERED: NS IV 1000 ML 1,000 ML IV SCH (11:00)
[2022-12-04 11:02] LABS: HEMOGLOBIN 6.8 g/dL (11.5-16.0)
[2022-12-04 11:14] LABS: ALBUMIN 3.5 GM/DL (3.2-4.5); CHLORIDE 104 MMOL/L (98-107); POTASSIUM 4.3 MMOL/L (3.6-5.0); SODIUM 139 MMOL/L (135-145)
[2022-12-04 11:16] LABS: CALCIUM 9.1 MG/DL (8.5-10.1)
[2022-12-04 11:17] LABS: GLUCOSE 106 MG/DL (70-105); TOTAL PROTEIN 6.7 GM/DL (6.4-8.2)
[2022-12-04 11:18] LABS: BILIRUBIN,TOTAL 0.6 MG/DL (0.1-1.0); CARBON DIOXIDE 23 MMOL/L (21-32)
[2022-12-04 11:20] LABS: ALKALINE PHOSPHATASE 33 U/L (40-136); CREATININE SERUM 1.85 MG/DL (0.60-1.30); GFR ESTIMATED 27
[2022-12-04 11:21] LABS: BUN/CREATININE RATIO 26
[2022-12-04 11:23] LABS: ALANINE AMINOTRANSFERASE 12 U/L (0-55)
--- NOTE | 2022-12-04 11:36 | Diagnostic Imaging Report ---
PROCEDURE: CT head without contrast. TECHNIQUE: Multiple contiguous axial images were obtained through the brain without the use of intravenous contrast. Auto Exposure Controls were utilized during the CT exam to meet ALARA standards for radiation dose reduction. INDICATION: Fall. CORRELATION is made with prior CT from 09/10/2021. The ventricles and sulci are prominent consistent the patient's age. Moderate periventricular low attenuation is noted consistent with chronic microvascular ischemia. There is no sulcal effacement or midline shift. No acute intra-axial or extra-axial hemorrhage is detected. Cisterns are patent. Visualized paranasal sinuses are clear. IMPRESSION: Chronic changes. No acute intracranial process is detected. Dictated by: Dictated on workstation # [id number]
[2022-12-04] MEDS ORDERED: ONDANSETRON 4 MG/2 ML (SDV) Z0FRAN IVP ONE (11:45)
--- NOTE | 2022-12-04 11:47 | Diagnostic Imaging Report ---
Indication: Fall. Time of Exam: 11:37 AM Correlation is made with prior study from 11/17/2021. Heart size stable. Right hemidiaphragm is chronically elevated. No infiltrates are detected. There is no effusion or pneumothorax. Postop changes in the left shoulder are noted. There are severe degenerative changes at the right shoulder. IMPRESSION: Chronic changes. No acute cardiopulmonary process is detected. Dictated by: Dictated on workstation # [id number]
--- NOTE | 2022-12-04 11:47 | Diagnostic Imaging Report ---
Indication: Right hip fracture. Time of Exam: 11:34 AM There is an endotrochanteric right hip fracture with coxa varus deformity. Femoral acetabular alignment is maintained. Remainder of the right femur is intact. There are postop changes of right knee arthroplasty. Vascular calcifications in the femoral-popliteal system are noted. IMPRESSION: Intertrochanteric right hip fracture. Dictated by: Dictated on workstation # [id number]
--- NOTE | 2022-12-04 11:48 | Diagnostic Imaging Report ---
INDICATION: Injury with pain FINDINGS: 3 view elbow showed no fracture, dislocation, acute articular irregularity or displaced fat pad. IMPRESSION: No acute appearing abnormality. Dictated by: Dictated on workstation # [id number]
--- NOTE | 2022-12-04 11:50 | Diagnostic Imaging Report ---
INDICATION: Pain FINDINGS: 2 view humerus shows a bone anchor in the humeral head. There is severe glenohumeral and AC joint arthritis. There are chronic appearing well corticated bodies within the subcoracoid bursa and likely axillary pouch. There is bony demineralization. There is irregularity of the distal clavicle without disruption of the AC or CC joint spaces, is suspect for a distal clavicular fracture. Correlate with pinpoint pain over that level. No other potential acute finding. IMPRESSION: 1. Intact humerus, degenerative and postoperative changes as described. 2. Irregularity distal tip of the clavicle of uncertain acuity but is radiographically suspicious for its recent fracture, correlate with pain at that site. Dictated by: Dictated on workstation # [id number]
--- NOTE | 2022-12-04 11:50 | Diagnostic Imaging Report ---
INDICATION: Fall and right hip pain. TIME OF EXAM: 11:34 a.m. FINDINGS: Multiple views of the right femur demonstrate intertrochanteric right hip fracture with coxa vara deformity. Femoroacetabular alignment is maintained. Left hip appears intact. Rami are unremarkable. IMPRESSION: Intertrochanteric right hip fracture. Dictated by: Dictated on workstation # [id number]
--- NOTE | 2022-12-04 12:10 | ED Fall/Injury ---
General Chief Complaint: Trauma-Non Activation Stated Complaint: FALL Nursing Triage Note: PT BROUGHT IN BY [facility] FROM HOME WITH COMPLAINT OF FALL. STATES SHE WAS WALKING AND BECAME DIZZY AND FELL. STATES SHE HAS BEEN HAVING VERTIGO FOR THE LAST TWO WEEKS. COMPLAINING OF RIGHT HIP AND ELBOW PAIN. 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 SHE HAS BEEN HAVING PROBLEMS WITH "VERTIGO" FOR THE PAST 3-4 WEEKS TODAY, SHE WAS WALKING IN THE HOUSE AND GOT DIZZY AND FELL, LANDING ON CARPETED FLOOR ON HER RIGHT SIDE THIS OCCURRED AROUND 0900 THIS MORNING SHE DID NOT HIT HER HEAD OR HAVE LOSS OF CONSCIOUSNESS SHE C/O SEVERE PAIN IN RIGHT HIP PAIN SHE ALSO C/O MILD RIGHT ELBOW PAIN NO NECK OR BACK PAIN NO PARESTHESIAS OR MOTOR DEFICITS NO CHEST OR RIB PAIN NO SHORTNESS OF BREATH NO ABDOMINAL PAIN OR NAUSEA/VOMITING NO VISION CHANGES NO HEADACHE PT IS ON 81 MG ASPIRIN AND PRASUGREL 10 MG SHE HAS HAD CARDIAC CATH WITH STENTS, HTN, HYPERLIPIDEMIA SHE HAS HAD BILATERAL KNEE REPLACEMENTS, RIGHT ROTATOR CUFF REPAIR, LEFT SHOULDER REPLACEMENT, BILATERAL CARPAL TUNNEL SURGERY PT HAS TAKEN HER MORNING MEDICATIONS. SHE HAD ROUTINE EXAM WITH DR. MENCHACA LAST WEEK, NO LAB DONE. NO MEDICATION CHANGES PCP:DR. 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 THOMAS--ALSO SEES DR. MCCLURE AT [facility]. Allergies and Home Medications Allergies Coded Allergies: morphine (Verified Allergy, Unknown, 12/04/22) quinine (Verified Allergy, Unknown, 11/25/15) Patient Home Medication List Home Medication List Reviewed: Yes Acetaminophen (Tylenol) 325 Mg Tablet, 650 MG PO Q6H PRN for PAIN-MILD (1-4), (Reported) Entered as Reported by: FRANCHESKA LEWIS on 11/17/21914 Carvedilol (Carvedilol) 3.125 Mg Tablet, 3.125 MG PO BID, (Reported) Entered as Reported by: FRANCHESKA LEWIS on 11/17/21909 Cholecalciferol (Vitamin D3) (Vitamin D3) 25 Mcg Tablet, 25 MCG PO DAILY, (Reported) Entered as Reported by: FRANCHESKA LEWIS on 3/2/22 0910 Furosemide (Furosemide) 40 Mg Tablet, 40 MG PO DAILY, (Reported) Entered as Reported by: FRANCHESKA LEWIS on 11/17/21 09 Lisinopril (Lisinopril) 10 Mg Tablet, 10 MG PO HS, (Reported) Entered as Reported by: FRANCHESKA LEWIS on 11/17/21 09 Magnesium Oxide (Magnesium Oxide) 400 Mg Tablet, 400 MG PO HS, (Reported) Entered as Reported by: BERTO DELACRUZ on 11/25/15 132 Omeprazole (Omeprazole) 20 Mg Capsule.dr, 20 MG PO DAILY, (Reported) Entered as Reported by: BERTO DELACRUZ on 11/25/15 132 Potassium Gluconate (Potassium) 99 Mg Tablet, 99 MG PO DAILY, (Reported) Entered as Reported by: FRANCHSEKA LEWIS on 11/17/21 09 Pravastatin Sodium (Pravastatin Sodium) 40 Mg Tablet, 40 MG PO HS, (Reported) Entered as Reported by: BERTO DELACRUZ on 11/25/15 1321 Review of Systems Review of Systems Constitutional: see HPI, dizziness, weakness Eyes: No Symptoms Reported Ears, Nose, Mouth, Throat: no symptoms reported Respiratory: no symptoms reported Cardiovascular: no symptoms reported Gastrointestinal: no symptoms reported Genitourinary: no symptoms reported Musculoskeletal: see HPI Skin: no symptoms reported Psychiatric/Neurological: No Symptoms Reported; Denies Headache Past Nuifpwo-Zywgnj-Kqdctr Hx Patient Social History Tobacco Use?: No Smoking Status: Former Smoker Use of E-Cig and/or Vaping dev: No Substance use?: No Alcohol Use?: No Pt feels they are or have been: No Immunizations Up To Date First/Initial COVID19 Vaccinat: UNKNOWN Second COVID19 Vaccination Arnulfo: UNKNOWN Third COVID19 Vaccination Date: UNKNOWN Seasonal Allergies Seasonal Allergies: Yes Past Medical History Surgery/Hospitalization HX: htn, high cholesterol Surgeries: Yes Cardiac, Coronary Stent, Gallbladder, Joint Replacement, Orthopedic, Tubal Ligation Respiratory: No Cardiac: Yes (CAD WTIH STENTS) Chronic Edema/Swelling, Coronary Artery Disease, High Cholesterol, Hypertension 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 Severe calcified LAD stenosis with subtotal occlusion, moderate to severe proximal LAD and mid LAD involving ostium of a small diagonal artery, moderate disease distally 2. Diffuse ectasia in the left circumflex artery with mild to moderate disease nonobstructive disease 3. Heavily calcified and tortuous right coronary artery with mild to moderate disease Discussion and recommendation: Patient will require high risk intervention possible Rotablator to the LAD then stenting of the LAD. Consideration for bypass surgery. Physical Exam Vital Signs Capillary Refill : Less Than 3 Seconds Height, Weight, BMI Height: 5'6" Weight: 170lbs. oz. [id number]; 21.00 BMI Method: General Appearance: WD/WN, no apparent distress, thin, other (LAYING SLIGHTLY ON RIGHT SIDE) HEENT: pale conjunctivae (R), pale conjunctivae (L), other (DRY ORAL MUCOSA) Cardiovascular: no edema, irregularly irregular Respiratory: chest non-tender, normal breath sounds, no respiratory distress, no accessory muscle use Peripheral Pulses: 1+ Dorsalis Pedis (R), 1+ Left Dors-Pedis (L), 1+ Radial Pulses (R), 1+ Radial Pulses (L) Gastrointestinal: normal bowel sounds, non tender, soft Back: no CVA tenderness Extremities: slow capillary refill, other (PULSES 1+ BILATERALLY, FEET COLD AND TOPS OF FEET ARE ECCHYMOTIC--TOES AND SOLES ARE NOT ECCHYMOTIC. 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 as tested, no motor/sensory deficits, alert, normal mood/affect, oriented x 3 Skin: warm/dry, pallor Esteban Coma Score Best Eye Response: (4) Open Spontaneously Best Verbal Response: (5) Oriented Best Motor Response: (6) Obeys Commands [place] Total: 15 Progress/Results/Core Measures Results/Orders Lab Results Laboratory Tests Test 12/04/22 10:49 12/04/22 12:20 Range/Units White Blood Count 5.9 4.3-11.0 10^3/uL Red Blood Count 3.27 L 3.80-5.11 10^6/uL Hemoglobin 6.8 *L 11.5-16.0 g/dL Hematocrit 25 L 35-52 % Mean Corpuscular Volume 77 L 80-99 fL Mean Corpuscular Hemoglobin 21 L 25-34 pg Mean Corpuscular Hemoglobin Concent 27 L 32-36 g/dL Red Cell Distribution Width 18.7 H 10.0-14.5 % Platelet Count 273 130-400 10^3/uL Mean Platelet Volume 9.5 9.0-12.2 fL Immature Granulocyte % (Auto) 1 % Neutrophils (%) (Auto) 71 42-75 % Lymphocytes (%) (Auto) 19 12-44 % Monocytes (%) (Auto) 8 0-12 % Eosinophils (%) (Auto) 2 0-10 % Basophils (%) (Auto) 0 0-10 % Neutrophils # (Auto) 4.2 1.8-7.8 10^3/uL Lymphocytes # (Auto) 1.1 1.0-4.0 10^3/uL Monocytes # (Auto) 0.5 0.0-1.0 10^3/uL Eosinophils # (Auto) 0.1 0.0-0.3 10^3/uL Basophils # (Auto) 0.0 0.0-0.1 10^3/uL Immature Granulocyte # (Auto) 0.0 0.0-0.1 10^3/uL Sodium Level 139 135-145 MMOL/L Potassium Level 4.3 3.6-5.0 MMOL/L Chloride Level 104 98-107 MMOL/L Carbon Dioxide Level 23 21-32 MMOL/L Anion Gap 12 5-14 MMOL/L Blood Urea Nitrogen 49 H 7-18 MG/DL Creatinine 1.85 H 0.60-1.30 MG/DL Estimat Glomerular Filtration Rate 27 BUN/Creatinine Ratio 26 Glucose Level 106 H 70-105 MG/DL Calcium Level 9.1 8.5-10.1 MG/DL Corrected Calcium 9.5 8.5-10.1 MG/DL Magnesium Level 2.0 1.6-2.4 MG/DL Total Bilirubin 0.6 0.1-1.0 MG/DL Aspartate Amino Transf (AST/SGOT) 19 5-34 U/L Alanine Aminotransferase (ALT/SGPT) 12 0-55 U/L Alkaline Phosphatase 33 L 40-136 U/L Troponin I < 0.028 <0.028 NG/ML Total Protein 6.7 6.4-8.2 GM/DL Albumin 3.5 3.2-4.5 GM/DL Prothrombin Time 14.6 12.2-14.7 SEC INR Comment 1.1 0.8-1.4 Activated Partial Thromboplast Time 29 24-35 SEC Urine Color YELLOW Urine Clarity SL CLOUDY Urine pH 6.0 5-9 Urine Specific [place] 1.020 1.016-1.022 Urine Protein NEGATIVE NEGATIVE Urine Glucose (UA) NEGATIVE NEGATIVE Urine Ketones NEGATIVE NEGATIVE Urine Nitrite NEGATIVE NEGATIVE Urine Bilirubin NEGATIVE NEGATIVE Urine Urobilinogen 0.2 < = 1.0 MG/DL Urine Leukocyte Esterase NEGATIVE NEGATIVE Urine RBC (Auto) TRACE-I H NEGATIVE Urine RBC 2-5 H /HPF Urine WBC NONE /HPF Urine Crystals NONE /LPF Urine Bacteria NEGATIVE /HPF Urine Casts NONE /LPF Urine Mucus NEGATIVE /LPF Urine Culture Indicated NO My Orders Orders - ERICA ARRIOLA DO Ed Iv/Invasive Line Start (12/04/22 10:52) Catheter(Urinary) Insert & Ass 03,15 (12/04/22 10:52) Monitor-Rhythm Ecg Trace Only (12/04/22 10:52) Ct Head Wo (12/04/22 10:52) Chest 1 View, Ap/Pa Only (12/04/22 10:52) Humerus, Right, 2 Views (12/04/22 10:52) Elbow, Right, 3 Views (12/04/22 10:52) Femur, Right, 2 Views (12/04/22 10:52) Pelvis With Right Hip 2-3views (12/04/22 10:52) Cbc With Automated Diff (12/04/22 10:52) Comprehensive Metabolic Panel (12/04/22 10:52) Magnesium (12/04/22 10:52) Protime With Inr (12/04/22 10:52) Partial Thromboplastin Time (12/04/22 10:52) Ua Culture If Indicated (12/04/22 10:52) Troponin I [place] (12/04/22 10:52) Ed Iv/Invasive Line Start (12/04/22 10:52) Ns Iv 1000 Ml (Sodium Chloride 0.9%) (12/04/22 11:00) Lidocaine 2% (Urojet) (Xylocaine Urojet) (12/04/22 11:00) Fentanyl Inj (Sublimaze Injection) (12/04/22 11:00) Ekg Tracing (12/04/22 11:07) O2 (12/04/22 11:07) Red Cells Leukocytes Reduced (12/04/22 11:07) Type And Screen (12/04/22 11:07) Fentanyl Inj (Sublimaze Injection) (12/04/22 11:15) Ondansetron Injection (Zofran Injectio (12/04/22 11:45) Fentanyl Inj (Sublimaze Injection) (12/04/22 12:30) Iv Push Balance Truing Inspector Ed (12/04/22 ) Medications Given in ED Vital Signs/I&O Blood Pressure Mean: 83 Progress Progress Note : Progress Note GIVEN: -FENTANYL FOR PAIN -ZOFRAN--BECAME NAUSEATED IN XRAY DEPT PT'S HGB TODAY IS 6.8. --BLOOD TRANSFUSION ORDERED. PREVIOUS HGB LEVELS HAVE BEEN IN THE 11'S. LAST HGB DONE HERE WAS 11/17/2021 AND WAS 11.6. SHE HAS NEVER HAD PROBLEMS WITH ANEMIA BEFORE. SHE DENIES ANY GI SYMPTOMS--NO HEMATEMESIS OR COFFEE GROUND EMESIS, NO BLACK/BLOODY/TARRY STOOLS AND NO ABDOMINAL PAIN SHE DID HAVE O2 SATS 87-88%, AND WAS PLACED ON O2 AT 2L/NC AND O2 SATS UP TO MID 90'S FOR REMAINDER OF ER STAY NO HYPOTENSION OR TACHYCARDIA NO DETERIORATION IN PT'S CONDITION DURING ER STAY REVIEWED PRIOR RECORDS INCLUDING ER VISITS, LAB/TESTS DISCUSSED TEST RESULTS, NEED FOR TRANSFER. PT AGREES TO PLAN . THERE ARE NO ORTHOPEDIC SURGERY OR CARDIOLOGY SERVICES HERE ALL WEEKEND. Initial ECG Impression Date: Dec 04, 2022 Initial ECG Impression Time: 12:01 Initial ECG Rate: 76 Initial ECG Rhythm: A Fib/Flutter Initial ECG Intervals WA--N/A QRS 85 QT/QTC 385/416 Initial ECG Comparisson: Changed Comment INTERPRETED BY ME Diagnostic Imaging Comments CT HEAD--PER RADIOLOGIST REPORT AT 1141 The ventricles and sulci are prominent consistent the patient's age. Moderate periventricular low attenuation is noted consistent with chronic microvascular ischemia. There is no sulcal effacement or midline shift. No acute intra-axial or extra-axial hemorrhage is detected. Cisterns are patent. Visualized paranasal sinuses are clear. IMPRESSION: Chronic changes. No acute intracranial process is detected. CXR--Heart size stable. Right hemidiaphragm is chronically elevated. No infiltrates are detected. There is no effusion or pneumothorax. Postop changes in the left shoulder are noted. There are severe degenerative changes at the right shoulder. IMPRESSION: Chronic changes. No acute cardiopulmonary process is detected. RIGHT HUMERUS-- FINDINGS: 2 view humerus shows a bone anchor in the humeral head. There is severe glenohumeral and AC joint arthritis. There are chronic appearing well corticated bodies within the subcoracoid bursa and likely axillary pouch. There is bony demineralization. There is irregularity of the distal clavicle without disruption of the AC or CC joint spaces, is suspect for a distal clavicular fracture. Correlate with pinpoint pain over that level. No other potential acute finding. IMPRESSION: 1. Intact humerus, degenerative and postoperative changes as described. 2. Irregularity distal tip of the clavicle of uncertain acuity but is radiographically suspicious for its recent fracture, correlate with pain at that site. RIGHT ELBOW-- FINDINGS: 3 view elbow showed no fracture, dislocation, acute articular irregularity or displaced fat pad. IMPRESSION: No acute appearing abnormality. PELVIS/RIGHT HIP-- FINDINGS: Multiple views of the right femur demonstrate intertrochanteric right hip fracture with coxa vara deformity. Femoroacetabular alignment is maintained. Left hip appears intact. Rami are unremarkable. IMPRESSION: Intertrochanteric right hip fracture. RIGHT FEMUR-- There is an endotrochanteric right hip fracture with coxa varus deformity. Femoral acetabular alignment is maintained. Remainder of the right femur is intact. There are postop changes of right knee arthroplasty. Vascular calcifications in the femoral-popliteal system are noted. IMPRESSION: Intertrochanteric right hip fracture. Reviewed: Reviewed by Mi Departure Communication (Admissions) 1148--CALLED [facility] 1150--SPOKE WITH DR. KHAN, ER PHYSICIAN, ACCEPTS PT FOR ADMIT 1235--SPOKE WITH DR. MENCHACA AND INFORMED HIM OF PT'S CONDITION, AND NEED FOR TRANSFER Impression Primary Impression: Status post fall Additional Impressions: Severe anemia Atrial fibrillation Closed right hip fracture Acute renal insufficiency HX OF CAD WITH STENT Disposition: XFER SHT-TRM HOSP Condition: Stable Transfer Transfer Reason: Exceeds level of care (NO ORTHOPEDIC OR CARDIOLOGY SERVICES HERE AT THIS TIME) Transfer Facility: [facility] MD Method of Transfer: EMS Departure-Patient Inst. Referrals: SUAD MENCHACA MD (PCP/Family) Primary Care Physician ERICA ARRIOLA DO Dec 04, 2022 12:10
[2022-12-04 12:31] LABS: BILIRUBIN,URINE NEGATIVE (NEGATIVE); CLARITY,URINE SL CLOUDY; COLOR,URINE YELLOW; GLUCOSE, URINE (UA) NEGATIVE (NEGATIVE); KETONES,URINE NEGATIVE (NEGATIVE); LEUKOCYTE ESTERASE ,URINE NEGATIVE (NEGATIVE); NITRITE,URINE NEGATIVE (NEGATIVE); PROTEIN,URINE NEGATIVE (NEGATIVE)
[2022-12-04 13:01] LABS: BACTERIA,URINE NEGATIVE /HPF
[2022-12-04 13:02] VITALS: BP 116/72
[2022-12-04 14:30] LABS: INR 1.1 (0.8-1.4); PROTHROMBIN TIME PATIENT 14.6 SEC (12.2-14.7)
== END 2022-12-04 13:02 | disposition short-term general hospital (02) ==
LOC: EDUNIT# 10:42 → ER 10:43
DX: S72.091A Other fracture of head and neck of right femur, initial encounter for closed fracture (principal); D64.9 Anemia, unspecified; I48.91 Unspecified atrial fibrillation; N28.9 Disorder of kidney and ureter, unspecified; Z86.79 Personal history of other diseases of the circulatory system; Z95.5 Presence of coronary angioplasty implant and graft; Z79.82 Long term (current) use of aspirin; Z79.02 Long term (current) use of antithrombotics/antiplatelets; Z87.891 Personal history of nicotine dependence; Z88.5 Allergy status to narcotic agent; W18.30XA Fall on same level, unspecified, initial encounter; Y92.009 Unspecified place in unspecified non-institutional (private) residence as the place of occurrence of the external cause; Y93.01 Activity, walking, marching and hiking
CPT/HCPCS: 36415; 51702; 70450; 71045; 73060; 73080; 73552; 80053; 81000; 83735; 84484; 85025; 85610; 85730; 86850; 86900; 86901; 86920; 93005; 93041; 96361; 96374; 96375; 96376